=== PATIENT | male | born 1965 | race Caucasian/White ===

== ENCOUNTER 2017-07-29 06:16 | Emergency (ER) | payer SELFPAY ==
[~2017-07-29] VITALS: Ht 172.7 cm; Wt 75.0 kg
[2017-07-29 06:32] VITALS: BP 159/85
== END 2017-07-29 09:22 | disposition left against medical advice (07) ==
LOC: ER 06:48
DX: M79.673 Pain in unspecified foot (principal); Z53.21 Procedure and treatment not carried out due to patient leaving prior to being seen by health care provider

== ENCOUNTER 2017-07-30 16:58 | Emergency (ER) | payer SELFPAY ==
[~2017-07-30] VITALS: Ht 177.8 cm; Wt 82.0 kg
[2017-07-30 17:08] VITALS: BP 170/110
== END 2017-07-30 18:49 | disposition left against medical advice (07) ==
LOC: ER 16:58
DX: M79.672 Pain in left foot (principal); M79.671 Pain in right foot; Z53.21 Procedure and treatment not carried out due to patient leaving prior to being seen by health care provider